=== PATIENT | male | born 1985 | race Caucasian/White ===

== ENCOUNTER 2018-10-31 11:44 | Emergency (ER) | payer MEDICAID ==
[~2018-10-31] VITALS: Ht 154.9 cm; Wt 70.0 kg
[2018-10-31 11:49] VITALS: BP 140/67; PULSE 88; RESP 18; Ht 154.9 cm; Wt 70.0 kg
[2018-10-31] MEDS ORDERED: KETOROLAC 60 MG INJ IM STA (13:14)
--- NOTE | 2018-10-31 13:52 | ERD ---
ER Documentation Chief Complaint Chief Complaint INTERMITTENT HEADACHE X 4 YEARS HPI 33-year-old male with no reported past medical or surgical history who presents with 4-year complaint of bitemporal headache. Patient states he experiences daily headaches which have greatly affected his activities of daily life. Describes dull type headache that is worse in the morning. No exacerbating factors somewhat relieved with pain medications. Headache sometimes with radiation to the occipital region. Headaches not associated with nausea vomiting. No complaint of dizziness. Denies any focal neurologic deficit such as upper or lower extremity weakness, or paresthesias. States he is tried ibuprofen and Tylenol on and off which have moderately helped with his symptoms but is concerned about taking daily doses of both medications. He denies any history of head trauma. Has not seen a doctor in several years and has not had any workup for headache. No family history of similar headache. He is concerned because he does not have insurance and is experienced daily headache. ROS All systems reviewed and are negative except as per history of present illness. Medications Home Meds Active Scripts Acetaminophen* (Tylophen*) 500 Mg Capsule, 1 CAP PO Q6H PRN for PAIN AND OR ELEV ATED TEMP, #20 CAP Prov:VADIM CRUZ PA-C 10/31/18 Drwggcaoyv-Imgvghysxvpyw-Oxmorvit* (Fioricet*) 50-300-40 Mg Capsule, 1 CAP PO Q4H PRN for HEADACHE for 30 Days, CAP Prov:VADIM CRUZ PA-C 10/31/18 Allergies Allergies: Coded Allergies: No Known Allergy (Unverified , 10/31/18) FmHx Family History: No diabetes, No coronary disease, No other Physical Exam Vitals Vital Signs Date Temp Pulse Resp B/P (MAP) Pulse Ox O2 O2 Flow FiO2 Time Delivery Rate 10/31/18 98.1 88 18 140/67 98 11:49 (91) Physical Exam I have reviewed the triage vital signs. Const: Well nourished, well developed, appears stated age Eyes: PERRL, no conjunctival injection HENT: NCAT, Neck supple without meningismus CV: RRR, Warm, well-perfused extremities RESP: CTAB, Unlabored respiratory effort GI: soft, non-tender, non-distended, no masses MSK: No gross deformities appreciated, no pain at TMJ Skin: Warm, dry. No rashes Neuro: Alert, pathology collector II-XII grossly intact. Sensation and motor function of extremities grossly intact. Neuro: M/S: Alert and oriented Face: EOMI, face and pharynx with normal sensation and function Motor: Normal strength throughout Sensation: Normal sensation throughout Speech: Normal Cerebel: Normal coordination Normal gait Normal finger to nose Psych: Appropriate mood and affect. Results 24 hrs Current Medications Medications Dose Sig/Neeta Start Time Status Last (Trade) Ordered Route PRN Stop Time Admin Dose Reason Admin Ketorolac 30 mg ONCE STAT 10/31/18 DC 10/31/18 Tromethamine IM 13:14 13:45 (Toradol) 10/31/18 13:22 Procedures/MDM This patient presents with a headache most consistent with primary headache. Differential diagnosis includes migraine versus tension type headache. No headache red flags. Neurologic exam without evidence of meningismus, focal neurologic findings. Presentation not consistent with acute intracranial bleed to include SAH (lack of risk factors, headache history). Presentation not consistent with acute APPLICATION ASSISTANT infection to include meningitis or brain abscess, Temporal arteritis unlikely, as is acute angle closure glaucoma given history and physical findings. Presentation not consistent with other acute, emergent causes of headache at this time. Plan to treat symptomatically with pain medication. No indication for imaging/LP at this time. Plan/ED course: pain medication, CT brain, ARCEO cocktail ,serial reassessment CT of brain without acute or chronic findings. Pt with improved symptoms post cocktail. Pts neurologic symptoms have stabilized while they have been evaluated in the department and are appropriate for outpatient work up. He has been advised to establish care in our community clinics for additional workup and health maintenance. I have asked registration to discuss options for medical with patient. No e/o meningitis, intracranial bleed, seizure, stroke. Departure Condition: Stable Patient Instructions: Headache, Unspecified VADIM CRUZ PA-C Oct 31, 2018 13:52
[2018-10-31] MEDS ORDERED: BUTA1CAP38 PO (14:41)
[2018-10-31] MEDS ORDERED: ACET500C5 PO (14:41)
[2018-10-31] MEDS ORDERED: FAMO-96 PO (15:49)
== END 2018-10-31 15:56 | disposition home or self-care (01) ==
LOC: FTE 11:44
DX: R51 Headache (principal)
CPT/HCPCS: 70450; 96372; J1885; Z7502